=== PATIENT | male | born 1975 | race Caucasian/White ===

== ENCOUNTER 2020-06-11 06:18 | Emergency (ER) | payer SELFPAY ==
[~2020-06-11] VITALS: Ht 182.9 cm; Wt 102.3 kg
[2020-06-11 06:25] VITALS: Ht 182.9 cm; Wt 102.3 kg
[2020-06-11] MEDS ORDERED: LISINOPRIL10 MG PO (06:26)
[2020-06-11 06:54] LABS: BASOPHILS 0.5 % (0-2); EOSINOPHILS 5.8 % (0-7); HEMATOCRIT 43.6 % (42.0-54.0); HEMOGLOBIN 14.4 g/dL (13.5-17.5); IMMATURE GRANULOCYTES 0.5 % (0-5); LYMPHOCYTES 20.4 % (15-50); MCH 31.2 pg (26.0-34.0); MCV 94.6 fL (80.0-100.0); MEAN PLATELET VOLUME 10.9 fL (7.4-10.4); NEUTROPHILS 64.8 % (40-80); PLATELET COUNT 235 10x3/uL (130-400); RBC 4.61 10x6/uL (4.20-6.10); RDW 13.2 % (11.5-14.5)
[2020-06-11] MEDS ORDERED: TOPROL XL25 MG PO (07:09)
[2020-06-11 07:20] LABS: APTT 38.1 SECONDS (22.8-39.4); INR 1.15 (0.85-1.17); PROTIME 14.6 SECONDS (11.6-15.0)
[2020-06-11 07:21] LABS: CALC OSMOLALITY 277 mosm/kg (275-300); CALCIUM 9.1 mg/dL (8.5-10.1); CARBON DIOXIDE 29.1 mmol/L (21.0-32.0); CHLORIDE - SERUM 103 mmol/L (98-107); CREATININE - SERUM 1.2 mg/dL (0.6-1.3); GLUCOSE 97 mg/dL (74-106); POTASSIUM - SERUM 3.5 mmol/L (3.5-5.1); SODIUM 140 mmol/L (136-145); UREA NITROGEN 11 mg/dL (7-18); eGFR NON AFRICAN AMERICAN 70 mL/min (90-120)
[2020-06-11 07:36] LABS: ALBUMIN 4.1 g/dL (3.4-5.0); ALKALINE PHOSPHATASE 64 U/L (30-120); ALT (SGPT) 24 U/L (10-68); CKMB 0.5 U/L (0.0-3.6); CREATINE KINASE 131 UL (21-232); MAGNESIUM - SERUM 2.2 mg/dL (1.8-2.4); PROTEIN - SERUM 7.4 g/dL (6.4-8.2); TROPONIN-I < 0.017 ng/mL (0.000-0.060)
[2020-06-11 08:01] VITALS: BP 137/92
== END 2020-06-11 08:02 | disposition home or self-care (01) ==
LOC: D.ER 06:18
PROVIDERS: Family Medicine
DX: I49.1 Atrial premature depolarization (principal); I10 Essential (primary) hypertension